=== PATIENT | female | born 1970 | race Two or more races ===

== ENCOUNTER 2016-11-19 12:42 | Inpatient (IN) | payer SELFPAY ==
[~2016-11-19] VITALS: Ht 162.6 cm; Wt 74.8 kg
[2016-11-19] MEDS ORDERED: HYDROMORPHONE INJ 2 MG/ML DISP.SYRIN IM ONE (13:30)
[2016-11-19] MEDS ORDERED: HYDROMORPHONE 1 MG/1 ML DISP.SYRIN ONE (13:43)
[2016-11-19 14:54] LABS: BASOPHILS # (AUTO) 0.1 /CMM (0.0-0.2); BASOPHILS % (AUTO) 1.7 % (0.0-2.0); DIFF TOTAL % 100 %; EOSINOPHILS # (AUTO) 0.1 /CMM (0.0-0.7); EOSINOPHILS % (AUTO) 1.1 % (0.0-6.0); HEMATOCRIT 40 % (33-45); HEMOGLOBIN 13.4 g/dL (11.5-14.8); LYMPHOCYTES % (AUTO) 40.1 % (20.0-44.0); MEAN CORPUSCULAR HEMOGLOBIN 31 PG (26.0-33.0); MEAN CORPUSCULAR HGB CONC 34 g/dl (31.0-36.0); MEAN CORPUSCULAR VOLUME 93 fL (82-100); MONOCYTES # (AUTO) 0.3 /CMM (0.1-1.30); MONOCYTES % (AUTO) 5.6 % (2.0-12.0); NEUTROPHILS # (AUTO) 2.6 /CMM (1.8-8.9); NEUTROPHILS % (AUTO) 51.5 % (43.0-81.0); PLATELET COUNT (AUTO) 283 /CMM (150-450); RED BLOOD CELL COUNT(AUTO) 4.26 MIL/uL (4.0-5.2); WHITE BLOOD COUNT (AUTO) 5.1 K/uL (4.3-11.0)
[2016-11-19 15:29] LABS: CALCIUM, SERUM 9.5 mg/dL (8.5-10.1); CREATININE 0.7 mg/dL (0.6-1.3)
[2016-11-19 16:15] LABS: KETONES,URINE NEGATIVE (NEGATIVE); LEUKOCYTE ESTERASE ,URINE TRACE (NEGATIVE)
[2016-11-19 16:21] LABS: ADD UA MICROSCOPIC YES
[2016-11-19 16:22] LABS: PREGNANCY TEST URINE QUAL NEGATIVE (NEGATIVE)
[2016-11-19 16:25] LABS: ADD URINE CULTURE NO; RBC,URINE 0-2 /HPF (0-2); WBC,URINE 0-2 /HPF (0-3)
[2016-11-19] MEDS ORDERED: Z GUARD REMEDY 2 OZ OINT TP PRN (16:30)
[2016-11-19] MEDS ORDERED: MAGNESIUM HYDROXIDE 30 ML UDC PO PRN (16:30)
[2016-11-19] MEDS ORDERED: MAG HYDROX/AL HYDROX/SIMETH 30 ML UDC PO PRN (16:30)
[2016-11-19] MEDS ORDERED: ZOLPIDEM TARTRATE 5 MG TABLET PO PRN (16:30)
[2016-11-19] MEDS ORDERED: HYDROCODONE/APAP 5/325MG 1 EACH TABLET PO PRN (16:30)
[2016-11-19] MEDS ORDERED: ACETAMINOPHEN 325 MG TABLET PO PRN (16:30)
[2016-11-19] MEDS: HYDROMORPHONE INJ 2 MG/ML DISP.SYRIN IV PRN (17:35)
[2016-11-19] MEDS: ENOXAPARIN SODIUM 40 MG/0.4 ML DISP.SYRIN SQ SCH (17:57)
[2016-11-19 18:14] VITALS: BP 124/82
[2016-11-19] MEDS: ONDANSETRON HCL/PF 4 MG/2 ML VIAL IVP PRN (18:21)
[2016-11-19] MEDS ORDERED: ONDANSETRON HCL/PF 4 MG/2 ML VIAL IV ONE (19:30)
[2016-11-19] MEDS ORDERED: METOPROLOL TARTRATE 25 MG TABLET PO PRN (19:30)
[2016-11-19] MEDS ORDERED: METOPROLOL TARTRATE 25 MG TABLET ONE (19:58)
[2016-11-19 20:00] VITALS: BP 137/92
[2016-11-19] MEDS ORDERED: SUMATRIPTAN SUCCINATE 25 MG TABLET ONE (21:09)
[2016-11-19] MEDS: SUMATRIPTAN SUCCINATE 25 MG TABLET PO PRN (21:23)
[2016-11-19] MEDS: HYDROCODONE/APAP 10/325MG 1 EA TABLET PO PRN (23:00)
[2016-11-20 00:11] VITALS: BP 137/92
[2016-11-20 02:00] VITALS: BP 130/66
[2016-11-20] MEDS: HYDROMORPHONE INJ 2 MG/ML DISP.SYRIN IV PRN ×3 (02:21→17:47)
[2016-11-20] MEDS: ONDANSETRON HCL/PF 4 MG/2 ML VIAL IVP PRN ×2 (02:21→14:33)
[2016-11-20 07:16] LABS: CALCIUM, SERUM 9.1 mg/dL (8.5-10.1); CREATININE 0.7 mg/dL (0.6-1.3); PHOSPHORUS 4.9 mg/dL (2.5-4.9); POTASSIUM 3.7 mmol/L (3.5-5.1)
[2016-11-20 07:24] LABS: THYROID STIMULATING HORMONE 0.533 uIU/mL (0.358-3.74)
[2016-11-20 07:30] LABS: BASOPHILS % (AUTO) 0.2 % (0.0-2.0); DIFF TOTAL % 100 %; EOSINOPHILS % (AUTO) 0.1 % (0.0-6.0); HEMATOCRIT 38 % (33-45); HEMOGLOBIN 12.6 g/dL (11.5-14.8); LYMPHOCYTES # (AUTO) 1.3 /CMM (0.8-4.8); LYMPHOCYTES % (AUTO) 19.7 % (20.0-44.0); MEAN CORPUSCULAR HEMOGLOBIN 31 PG (26.0-33.0); MEAN CORPUSCULAR HGB CONC 34 g/dl (31.0-36.0); MEAN CORPUSCULAR VOLUME 93 fL (82-100); MONOCYTES # (AUTO) 0.3 /CMM (0.1-1.30); MONOCYTES % (AUTO) 4.4 % (2.0-12.0); NEUTROPHILS # (AUTO) 4.9 /CMM (1.8-8.9); NEUTROPHILS % (AUTO) 75.6 % (43.0-81.0); PLATELET COUNT (AUTO) 320 /CMM (150-450); RED BLOOD CELL COUNT(AUTO) 4.03 MIL/uL (4.0-5.2); WHITE BLOOD COUNT (AUTO) 6.4 K/uL (4.3-11.0)
[2016-11-20 08:00] VITALS: BP 110/67
[2016-11-20] MEDS: PANTOPRAZOLE 40 MG TABLET.DR PO SCH (08:48)
[2016-11-20] MEDS: SUMATRIPTAN SUCCINATE 25 MG TABLET PO PRN (14:28)
[2016-11-20 16:00] VITALS: BP 112/70
[2016-11-20] MEDS: diphenhydrAMINE HCL ELIX 25 MG/10 ML UDC PO PRN (17:30)
[2016-11-20 20:00] VITALS: BP 131/84
[2016-11-20 20:27] VITALS: BP 131/84
[2016-11-20] MEDS: ENOXAPARIN SODIUM 40 MG/0.4 ML DISP.SYRIN SQ SCH (22:23)
[2016-11-20] MEDS: HYDROCODONE/APAP 10/325MG 1 EA TABLET PO PRN (23:04)
[2016-11-21] VITALS: BP 137/70
[2016-11-21] MEDS ORDERED: PHENAZOPYRIDINE HCL 200 MG TABLET PO PRN (00:30)
[2016-11-21 01:10] LABS: KETONES,URINE NEGATIVE (NEGATIVE); LEUKOCYTE ESTERASE ,URINE 2+ (NEGATIVE)
[2016-11-21 02:00] LABS: ADD UA MICROSCOPIC YES
[2016-11-21 02:16] LABS: ADD URINE CULTURE YES
[2016-11-21 04:40] VITALS: BP 100/60
[2016-11-21] MEDS: HYDROMORPHONE INJ 2 MG/ML DISP.SYRIN IV PRN (07:57)
[2016-11-21] MEDS: diphenhydrAMINE HCL ELIX 25 MG/10 ML UDC PO PRN (07:57)
[2016-11-21] MEDS: PANTOPRAZOLE 40 MG TABLET.DR PO SCH (07:57)
[2016-11-21 08:00] VITALS: BP 114/61
[2016-11-21 09:23] VITALS: BP 114/61
[2016-11-21] MEDS: PHENAZOPYRIDINE HCL 200 MG TABLET PO PRN (10:34)
[2016-11-21] MEDS: SUMATRIPTAN SUCCINATE 25 MG TABLET PO PRN (14:07)
[2016-11-21 16:48] VITALS: BP 136/76
[2016-11-21 20:00] VITALS: BP 131/85
[2016-11-21] MEDS ORDERED: CEPHALEXIN MONOHYDRATE 500 MG CAPSULE PO ONE (21:55)
[2016-11-21] MEDS: CEPHALEXIN MONOHYDRATE 500 MG CAPSULE PO SCH (22:00)
[2016-11-22] MEDS: HYDROCODONE/APAP 10/325MG 1 EA TABLET PO PRN ×2 (03:28→16:23)
[2016-11-22] MEDS: PHENAZOPYRIDINE HCL 200 MG TABLET PO PRN ×2 (03:28→08:42)
[2016-11-22 06:47] LABS: BASOPHILS % (AUTO) 0.3 % (0.0-2.0); DIFF TOTAL % 100 %; EOSINOPHILS # (AUTO) 0.1 /CMM (0.0-0.7); EOSINOPHILS % (AUTO) 1.2 % (0.0-6.0); HEMATOCRIT 40 % (33-45); HEMOGLOBIN 13.1 g/dL (11.5-14.8); LYMPHOCYTES # (AUTO) 2.1 /CMM (0.8-4.8); LYMPHOCYTES % (AUTO) 20.9 % (20.0-44.0); MEAN CORPUSCULAR HEMOGLOBIN 31 PG (26.0-33.0); MEAN CORPUSCULAR HGB CONC 33 g/dl (31.0-36.0); MEAN CORPUSCULAR VOLUME 94 fL (82-100); MONOCYTES # (AUTO) 0.8 /CMM (0.1-1.30); MONOCYTES % (AUTO) 7.6 % (2.0-12.0); PLATELET COUNT (AUTO) 323 /CMM (150-450); RED BLOOD CELL COUNT(AUTO) 4.21 MIL/uL (4.0-5.2); WHITE BLOOD COUNT (AUTO) 9.9 K/uL (4.3-11.0)
[2016-11-22 07:07] LABS: CALCIUM, SERUM 8.9 mg/dL (8.5-10.1); CREATININE 0.7 mg/dL (0.6-1.3); POTASSIUM 3.7 mmol/L (3.5-5.1)
[2016-11-22 08:00] VITALS: BP 133/84
[2016-11-22] MEDS: PANTOPRAZOLE 40 MG TABLET.DR PO SCH (08:42)
[2016-11-22 08:43] VITALS: BP 133/84
[2016-11-22] MEDS: CEPHALEXIN MONOHYDRATE 500 MG CAPSULE PO SCH (09:27)
[2016-11-22] MEDS: SUMATRIPTAN SUCCINATE 25 MG TABLET PO PRN (11:49)
[2016-11-22] MEDS ORDERED: HYDR-3658 PO (16:43)
[2016-11-22] MEDS ORDERED: LEVO750T46 PO (16:43)
== END 2016-11-22 18:30 | disposition home or self-care (01) | DRG 552 ==
LOC: ER 12:43 → MEDSG2 16:39
DX: M51.27 Other intervertebral disc displacement, lumbosacral region (principal); N39.0 Urinary tract infection, site not specified; B96.20 Unspecified Escherichia coli [E. coli] as the cause of diseases classified elsewhere
CPT/HCPCS: 36415; 72128-TC; 72131-TC; 72148-TC; 80048-TC; 80061-TC; 81000-TC; 83735-TC; 84100-TC; 84443-TC; 84703-TC; 85025-TC; 87086-TC; 87186-TC; 97001-TC; 97116-TC; 97530-TC; A4606; J1170; J1650; J2405; Q0163; Z7610